=== PATIENT | female | born 1940 | race Caucasian/White ===

== ENCOUNTER → 2020-03-29 | Outpatient (CLI) | payer MEDICARE, OTHER ==
--- NOTE | 2020-03-29 13:18 | Diagnostic Imaging Report ---
INDICATION: Left wrist pain. EXAMINATION: AP, oblique, and lateral views of left wrist are obtained. FINDINGS: There is no definite acute fracture. There are periarticular calcifications compatible with chondrocalcinosis. There is joint space narrowing of the radiocarpal joint. There is an ulnar minus variant. There is degenerative change of the first carpal metacarpal joint. IMPRESSION: Chronic changes of left wrist with no acute-appearing abnormality. Dictated by: Dictated on workstation # [id number]
== END ==
LOC: RAD FS 12:56
PROVIDERS: ATTEND Nurse Practitioner Family
DX: M25.532 Pain in left wrist (principal)
CPT/HCPCS: 73110

== ENCOUNTER → 2021-02-08 | Outpatient (CLI) | payer MEDICARE, OTHER | LOC: CARD 11:32 | PROVIDERS: ATTEND Family Medicine | DX: R00.2 Palpitations (principal) | CPT/HCPCS: 93225; 93226 ==

== ENCOUNTER 2022-11-27 05:41 | Outpatient (CLI) | payer MEDICARE, OTHER ==
[~2022-11-27] VITALS: Ht 163.8 cm; Wt 59.0 kg
[2022-11-28] MEDS ORDERED: LEVO75CA5 PO (12:00)
== END 2022-11-28 12:02 | disposition home or self-care (01) ==
LOC: PREOP 05:41
PROVIDERS: ATTEND Surgery
DX: Z01.818 Encounter for other preprocedural examination (principal)

== ENCOUNTER 2022-12-17 11:12 | Day surgery (SDC) | payer MEDICARE, OTHER ==
[~2022-12-17] VITALS: Ht 163 cm; Wt 59.0 kg
[~2022-12-17 11:12] MED LIST: LEVO75CA5 PO
[2022-12-17] MEDS ORDERED: LACTATED RINGERS 1,000 ML IV STA (11:18)
[2022-12-17] MEDS ORDERED: HURRICAINE EXT TUBE (BENZOCAINE) XX PRN (11:30)
[2022-12-17 11:40] VITALS: BP 169/78
[2022-12-17] MEDS ORDERED: PROPOFOL INJECTION 50 ML IV ONE (13:05)
--- NOTE | 2022-12-17 13:06 | Progress Note-Pre Operative ---
Pre-Operative Progress Note Date of Available H&P: Dec 19, 2022 Date H&P Reviewed: Dec 17, 2022 Time H&P Reviewed: 13:06 History & Physical: H&P Reviewed, Patient Examed, No changes noted Pre-Operative Diagnosis: Unintentional Weight Loss CHALO DIAZ DO Dec 17, 2022 13:06
[2022-12-17] MEDS ORDERED: ESMOLOL 100 MG/10 ML (BREVIBLOC) VIAL ONE (13:26)
--- NOTE | 2022-12-17 13:41 | Progress Note-Post Operative ---
Post-Operative Progess Note Surgeon (s)/Blood Bank Laboratory Technician (s) Surgeon CHALO DIAZ DO Blood Bank Laboratory Technician: N/A Pre-Operative Diagnosis Unintentional Weight Loss Post-Operative Diagnosis Mucosal Thickening of Duodenum Diverticulosis Procedure & Operative Findings Date of Procedure 12/17/22 Procedure Performed/Findings EGD w/ biopsies Colonoscopy Anesthesia Type per PLATING TANK OPERATOR APPRENTICE Estimated Blood Loss Estimated blood loss (mL): None Specimens/Packing Specimens Removed Duodenum; Antrum; GEJ CHALO DIAZ DO Dec 17, 2022 13:41
[2022-12-17 13:42] VITALS: BP 138/67
--- NOTE | 2022-12-17 13:46 | Discharge Inst-Simple/Standard ---
Discharge Inst-Standard Patient Instructions/Follow Up Plan of Care/Instructions/FU: 2 weeks Yajaira Activity as Tolerated: Yes Discharge Diet: No Restrictions CHALO DIAZ DO Dec 17, 2022 13:46
[2022-12-17 13:47] VITALS: BP 155/76
[2022-12-17 13:50] VITALS: BP 155/76
[2022-12-17 14:16] VITALS: BP 155/76
--- NOTE | 2022-12-17 15:00 | Anesthesia-General Post-Op ---
MAC Patient Condition Mental Status/LOC: Same as Preop Cardiovascular: Satisfactory Nausea/Vomiting: Absent Respiratory: Satisfactory Pain: Controlled Complications: Absent Post Op Complications Complications None Follow Up Care/Instructions Patient Instructions None needed. Anesthesiology Discharge Order Discharge Order Patient is doing well, no complaints, stable vital signs, no apparent adverse anesthesia problems. No complications reported per nursing. RAYMON SALDAÑA CRNA Dec 17, 2022 14:59
--- NOTE | 2022-12-17 20:01 | OPERATIVE REPORT ---
DATE OF SERVICE: 12/17/2022 PREOPERATIVE DIAGNOSIS: Abnormal weight loss. POSTOPERATIVE DIAGNOSIS: Mucosal thickening of the duodenum, possible polyp, normal colon. PROCEDURES: EGD with biopsies, colonoscopy. SURGEON: Chalo Gates DO ANESTHESIA: Per [employer] SALES REPRESENTATIVE. ESTIMATED BLOOD LOSS: None. COMPLICATIONS: None. INDICATIONS: The patient is an 82-year-old female with abnormal weight loss. She understands risks and benefits of procedure and wished to proceed. Consent was signed in chart. DESCRIPTION OF PROCEDURE: The patient was taken to the endoscopy suite, placed in left lateral recumbent position. Timeout was performed. Scope was inserted in the mouth, down the esophagus, stomach, into the duodenum. Second portion of duodenum had no polyps, masses or ulcerations. The first portion had some inflammatory changes and some thickening appearance that could be a polyp, which cold biopsy was obtained. Scope was retracted back in the stomach where it was further insufflated. No polyps, masses or ulcerations. Scope was retroflexed noting no other pathology. Scope was returned to its normal position, slowly withdrawn until distal esophagus. Slight Schatzki's ring changes. Biopsy of this area was obtained. Scope was then slowly retracted back, noting no other pathology. Digital rectal exam was performed. No palpable polyps, masses or ulcerations. Scope was inserted in the rectum, advanced all the way to the cecum with minimal difficulty. Prep was adequate. Scope was then slowly retracted back. No polyps, masses or ulcerations in the cecum, ascending, transverse, descending and sigmoid colon. The sigmoid colon, moderate amount of diverticulosis present. Scope was then continuously retracted back to the rectum, it was also retroflexed, noting no other pathology. The patient tolerated the procedure well without complications, taken to recovery room in stable condition. RECOMMENDATIONS: The patient will follow up on pathology in a couple of weeks. For diverticulosis, would recommend high fiber diet. Does not need a repeat colonoscopy. If no source identified, we will consider radiographic imaging, which we will plan on depending upon pathology. Job ID: [id number] DocumentID: [id number] Dictated Date: 12/17/2022 13:48:44 Alliances Consultant Date: 12/17/2022 19:59:00 Dictated By: CHALO GATES DO
== END 2022-12-17 14:37 | disposition home or self-care (01) ==
LOC: ENDO 11:12
PROVIDERS: ATTEND Surgery
DX: K29.80 Duodenitis without bleeding (principal); K57.30 Diverticulosis of large intestine without perforation or abscess without bleeding; Z87.891 Personal history of nicotine dependence

== ENCOUNTER → 2023-01-13 | Outpatient (CLI) | payer MEDICARE, OTHER ==
[~2023-01-13] MED LIST changes: +CATHETER FLUSH 10 ML SYR IV PRN; +HOLD METFORMIN - RECEIVED CONTRAST 20 ML VIAL IV SCH; +IOHEXOL 350 MG/ML 100 ML (OMNIPAQUE 350) VIAL IV ONE; +NS 100 ML (IVPB) BAG IV ONE
[2023-01-13 12:19] LABS: CREATININE SERUM 1.11 MG/DL (0.60-1.30)
--- NOTE | 2023-01-13 13:22 | Diagnostic Imaging Report ---
INDICATION: Unexplained weight loss and decreased appetite. TECHNIQUE: Multiple contiguous axial images were obtained through the abdomen and pelvis after administration of intravenous contrast. Auto Exposure Controls were utilized during the CT exam to meet ALARA standards for radiation dose reduction. All CT scans use one or more of the following dose optimizing techniques: automated exposure control, MA and/or KvP adjustment based on patient size and exam type or iterative reconstruction. There is no previous study for comparison. Visualized portions of the lung bases are clear. There were no pleural fluid collections. There is no free intraperitoneal air. The liver shows a mass lesion in the left lobe measuring 2.6 cm. There are a couple of small lesions in the left lobe, one superiorly measuring about 1.4 cm and one to the falciform ligament measuring about 1.4 cm. The spleen, and kidneys appear unremarkable. There is a prominent mass in the pancreatic body measuring about 5.5 x 4.4 cm. There is dilatation of the pancreatic duct beyond this point. The finding is highly suspicious for pancreatic neoplasm. Portal vein and superior mesenteric vein remain patent. 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 There is some thickening and enlargement of the left adrenal gland. Right adrenal gland appeared normal. There are no appreciably enlarged nodes in the retroperitoneum. There is no sign of bowel obstruction. There are uncomplicated colonic diverticuli. There is a right adnexal cyst measuring about 2.8 cm. IMPRESSION: There is a mass in the pancreatic body as described above, with atrophy of the pancreatic tail and dilatation of the distal pancreatic duct, highly suspicious for pancreatic neoplasm. There are a few lesions in the left lobe of the liver which appear to be metastatic. There is enlargement of the left adrenal gland. Splenic artery appears thrombosed. Splenic artery is nonvisualized and is likely thrombosed as well. Dictated by: Dictated on workstation # [id number]
== END ==
LOC: RAD 12:45
PROVIDERS: ATTEND Nurse Practitioner
DX: K86.9 Disease of pancreas, unspecified (principal); K76.9 Liver disease, unspecified; E27.9 Disorder of adrenal gland, unspecified
CPT/HCPCS: 36415; 74177; 82565; 84520

== ENCOUNTER 2023-01-22 07:04 | Outpatient (CLI) | payer MEDICARE, OTHER ==
[2023-01-22] VITALS (12 sets, daily range): BP systolic 146–171; BP diastolic 63–98
[~2023-01-22] VITALS: Wt 59.0 kg
[~2023-01-22 07:04] MED LIST changes: -CATHETER FLUSH 10 ML SYR IV PRN; -HOLD METFORMIN - RECEIVED CONTRAST 20 ML VIAL IV SCH; -IOHEXOL 350 MG/ML 100 ML (OMNIPAQUE 350) VIAL IV ONE; -NS 100 ML (IVPB) BAG IV ONE
[2023-01-22 08:02] LABS: HEMOGLOBIN 11.2 g/dL (11.5-16.0)
[2023-01-22 08:04] LABS: MEAN PLATELET VOLUME 13.5 fL (9.0-12.2); WHITE BLOOD COUNT 9.1 10^3/uL (4.3-11.0)
[2023-01-22] MEDS ORDERED: NS IV 1000 ML 1,000 ML IV STA (08:09)
[2023-01-22] MEDS ORDERED: fentaNYL INJ 100 MCG/2 ML AMP IVP ONE (08:15)
[2023-01-22] MEDS ORDERED: LIDOCAINE 1% INJ 30 ML (XYLOCAINE) VIAL INJ ONE (08:15)
[2023-01-22] MEDS ORDERED: MIDAZOLAM 2 MG/2 ML (VERSED) VIAL IVP ONE (08:15)
[2023-01-22] MEDS ORDERED: HYDROcodone/APAP 5 MG/325 MG (LORTAB) TAB PO PRN (10:00)
--- NOTE | 2023-01-22 11:01 | Diagnostic Imaging Report ---
INDICATION: Liver mass. Patient presents for CT-guided biopsy. TECHNIQUE: All CT scans use one or more of the following dose optimizing techniques: automated exposure control, MA and/or KvP adjustment based on patient size and exam type or iterative reconstruction. The patient was brought to the CT suite placed on table in the supine position. Axial imaging through the abdomen was performed to evaluate appropriate entry site. The procedure was performed utilizing conscious sedation with radiology nursing and constant patient monitoring. Patient was given a total of 50 mcg of fentanyl intravenously and 1 mg of Versed intravenously. Total procedure time was approximately 8 minutes. The upper abdomen was prepped and draped in usual sterile fashion. Small amount 1% lidocaine was utilized for local anesthesia. 18-gauge coaxial Temno needle was advanced and placed with its tip along the margin of the low-attenuation mass left lobe of liver. 4 core biopsies were then obtained. A blood patch was injected during needle removal. Followup imaging shows no complicating features. Patient tolerated the procedure well and left the department in stable condition. IMPRESSION: Successful CT-guided core biopsy of the dominant mass left lobe of the liver, utilizing conscious sedation. Pathology results are currently pending. Dictated by: Dictated on workstation # [id number]
--- NOTE | 2023-01-22 16:22 | Pre-Op Note & Conscious Sedat ---
Pre-Operative Progress Note Date of Available H&P: Jan 22, 2023 Date H&P Reviewed: Jan 22, 2023 Time H&P Reviewed: 08:00 Pre-Op Diagnosis: liver mass Moderate Sedation PreProcedure Time 08:00 ASA Score 2 Airway Lungs Heart ASA score ASA 1: a normal healthy patient ASA 2: a patient with a mild systemic disease (mid diabetes, controlled hypertension, obesity ASA 3: a patient with a severe systemic disease that limits activity (angina, COPD, prior Myocardial infarction) ASA 4: a patient with an incapacitating disease that is a constant threat to life (CHF, renal failure) ASA 5: a moribund patient not expected to survive 24 hrs. (ruptured aneurysm) ASA 6: a declared brain- patient whose organs are being harvested. For emergent operations, add the letter E after the classification Mallampati Classification Grade 2 Sedation Plan Analgesia, Amnesia, Plan communicated to team members, Discussed options with patient/fam, Discussed risks with patient/fam The patient is an appropriate candidate to undergo the planned procedure, sedation, and anesthesia. The patient immediately re-assessed prior to indication. APOORVA ROCA MD Jan 22, 2023 16:22
== END 2023-01-22 11:45 ==
LOC: SDC 07:04
PROVIDERS: ATTEND Surgery
DX: R16.0 Hepatomegaly, not elsewhere classified (principal)
CPT/HCPCS: 36415; 77012; 85027; 85610; 85730; 99156

== ENCOUNTER 2023-02-17 05:27 | Outpatient (CLI) | payer MEDICARE, OTHER ==
[~2023-02-17] VITALS: Ht 163.8 cm; Wt 58.9 kg
[2023-02-18] MEDS ORDERED: DOCU-143 PO (15:53)
[2023-02-18] MEDS ORDERED: LEVO75CA5 PO (16:01)
== END 2023-02-18 16:02 | disposition home or self-care (01) ==
LOC: PREOP 05:27
PROVIDERS: ATTEND Surgery
DX: Z01.818 Encounter for other preprocedural examination (principal)